=== PATIENT | male | born 1940 | race Two or more races ===

== ENCOUNTER 2017-11-22 13:52 | Inpatient (IN) | payer OTHER ==
[~2017-11-22] VITALS: Ht 172.7 cm; Wt 66.3 kg
[2017-11-22 13:55] VITALS: Ht 172.7 cm; Wt 66.3 kg
[2017-11-22] MEDS ORDERED: ONGLYZA5 M1 PO (14:12)
[2017-11-22] MEDS ORDERED: NOR10 PO (14:12)
[2017-11-22] MEDS ORDERED: GLUCOTROL5 MG PO (14:12)
[2017-11-22] MEDS ORDERED: ZOCOR5 MG (14:13)
[2017-11-22] MEDS ORDERED: BENAZEPRIL HYDR20 M1 PO (14:13)
[2017-11-22] MEDS ORDERED: ATENOLOL25 MG PO (14:13)
[2017-11-22] MEDS ORDERED: NOVOLOG MIX 70/33 ML SC ×2 (14:14)
[2017-11-22 14:30] LABS: BASOPHIL % 0.3 % (0-2); PLATELET COUNT 186 x10^3mcL (130-400); RED CELL DISTRIBUTION WIDTH 13.5 % (11.5-14.5)
[2017-11-22 14:43] LABS: ALKALINE PHOSPHATASE 59 U/L (46-116); ALT/SGPT 48 U/L (16-63); AST/SGOT 25 U/L (15-37); BILIRUBIN TOTAL 0.2 mg/dL (0.20-1.00); CALCIUM 7.8 mg/dL (8.5-10.1); CARBON DIOXIDE 23.4 mmol/L (21-32); CHLORIDE SERUM 105 mmol/L (98-107); GLUCOSE SERUM 67 mg/dL (74-106); POTASSIUM SERUM 4.4 mmol/L (3.5-5.1); SODIUM SERUM 139 mmol/L (136-145); TOTAL PROTEIN, SERUM 7.3 g/dL (6.4-8.2)
[2017-11-22 14:44] LABS: ALBUMIN 3.3 g/dL (3.4-5.0)
[2017-11-22 17:13] LABS: T3 TOTAL 0.68 ng/mL
[2017-11-22 17:14] LABS: MAGNESIUM 2.7 mg/dL (1.8-2.4); PHOSPHOROUS 4.5 mg/dL (2.5-4.9)
[2017-11-22 17:16] LABS: CHOLESTEROL/HDL RATIO 2.7
[2017-11-22 17:18] LABS: FREE T4 0.8 ng/dL (0.76-1.46); FREE THYROXINE INDEX 1.8 ug/dL (1.4-4.5); T4(THYROXINE) 5.5 ug/dL (4.7-13.3)
[2017-11-22 18:00] VITALS: BP 155/64
[2017-11-22 19:15] LABS: UA SPECIFIC GRAVITY <=1.005 (1.005-1.035); microscopic required? YES; urine erythrocyte 1+ (NEGATIVE)
[2017-11-22 19:24] LABS: AMPHETAMINE QUAL UR NONE DETECTED (NEG <=1000)
[2017-11-22 20:10] VITALS: BP 145/54
[2017-11-23 05:50] VITALS: BP 113/45
[2017-11-23 08:06] LABS: BASOPHIL % 0.3 % (0-2); PLATELET COUNT 189 x10^3mcL (130-400); RED CELL DISTRIBUTION WIDTH 13.6 % (11.5-14.5)
[2017-11-23 08:26] LABS: CALCIUM 8.8 mg/dL (8.5-10.1); CARBON DIOXIDE 22.6 mmol/L (21-32); CHLORIDE SERUM 108 mmol/L (98-107); GLUCOSE SERUM 121 mg/dL (74-106); POTASSIUM SERUM 4.7 mmol/L (3.5-5.1); SODIUM SERUM 141 mmol/L (136-145)
[2017-11-23 08:30] VITALS: BP 123/81; BP 135/61
[2017-11-23 08:37] LABS: MAGNESIUM 2.7 mg/dL (1.8-2.4); PHOSPHOROUS 4.8 mg/dL (2.5-4.9)
[2017-11-23 13:07] VITALS: BP 128/54
[2017-11-23 16:55] VITALS: BP 110/53
[2017-11-23 21:04] VITALS: BP 101/46
[2017-11-24 05:18] VITALS: BP 118/53
[2017-11-24 07:53] LABS: BASOPHIL % 0.4 % (0-2); PLATELET COUNT 174 x10^3mcL (130-400); RED CELL DISTRIBUTION WIDTH 13.4 % (11.5-14.5)
[2017-11-24 08:15] LABS: CALCIUM 8.4 mg/dL (8.5-10.1); CARBON DIOXIDE 22.9 mmol/L (21-32); CHLORIDE SERUM 109 mmol/L (98-107); GLUCOSE SERUM 180 mg/dL (74-106); MAGNESIUM 2.4 mg/dL (1.8-2.4); PHOSPHOROUS 3.4 mg/dL (2.5-4.9); POTASSIUM SERUM 5.1 mmol/L (3.5-5.1); SODIUM SERUM 141 mmol/L (136-145)
[2017-11-24 09:45] VITALS: BP 143/51
[2017-11-24 14:57] VITALS: BP 132/42
[2017-11-24 17:53] VITALS: BP 137/56
[2017-11-24 18:43] VITALS: BP 137/56
== END 2017-11-24 18:40 | disposition home or self-care (01) | DRG 91 ==
LOC: ED 13:52 → DU 16:18 → MU 17:01 → DU 17:02
PROVIDERS: Emergency Medicine; Family Medicine
DX: G92 Toxic encephalopathy (principal); N17.0 Acute kidney failure with tubular necrosis; E44.1 Mild protein-calorie malnutrition; E11.649 Type 2 diabetes mellitus with hypoglycemia without coma; T38.3X5A Adverse effect of insulin and oral hypoglycemic [antidiabetic] drugs, initial encounter; E83.41 Hypermagnesemia; R31.9 Hematuria, unspecified; E11.65 Type 2 diabetes mellitus with hyperglycemia; I10 Essential (primary) hypertension; E78.5 Hyperlipidemia, unspecified; Z68.24 Body mass index [BMI] 24.0-24.9, adult; Z86.73 Personal history of transient ischemic attack (TIA), and cerebral infarction without residual deficits; Z79.4 Long term (current) use of insulin; Y92.009 Unspecified place in unspecified non-institutional (private) residence as the place of occurrence of the external cause
CPT/HCPCS: 82962; 83880; 84439; 97110-GP; A9500; B4164; J1644; J2785; J3490; J7030; J7042; Q0092

== ENCOUNTER 2019-09-03 08:29 | Emergency (ER) | payer OTHER ==
[~2019-09-03] VITALS: Ht 167.6 cm; Wt 63.5 kg
[~2019-09-03 08:29] MED LIST: ATENOLOL25 MG PO; BENAZEPRIL HYDR20 M1 PO; GLUCOTROL5 MG PO; NOR10 PO; NOVOLOG MIX 70/33 ML SC; ONGLYZA5 M1 PO; ZOCOR5 MG
[2019-09-03 08:36] VITALS: Ht 167.6 cm; Wt 63.5 kg
[2019-09-03 09:57] LABS: microscopic required? NO
[2019-09-03 10:05] LABS: BASOPHIL % 0.4 % (0-2); PLATELET COUNT 211 x10^3mcL (130-400); RED CELL DISTRIBUTION WIDTH 14.2 % (11.5-14.5)
[2019-09-03 10:15] LABS: CALCIUM 8.8 mg/dL (8.5-10.1); CHLORIDE SERUM 109 mmol/L (98-107); CREATININE SERUM 2.1 mg/dL (0.7-1.3); GLUCOSE SERUM 125 mg/dL (74-106); POTASSIUM SERUM 5.3 mmol/L (3.5-5.1); SODIUM SERUM 140 mmol/L (136-145)
[2019-09-03 10:20] LABS: UA SPECIFIC GRAVITY >1.030 (1.005-1.035)
[2019-09-03 10:20] LABS: ALBUMIN 3.5 g/dL (3.4-5.0); ALKALINE PHOSPHATASE 57 U/L (46-116); ALT/SGPT 67 U/L (16-63); AST/SGOT 26 U/L (15-37); BILIRUBIN TOTAL 0.3 mg/dL (0.20-1.00); TOTAL PROTEIN, SERUM 7.3 g/dL (6.4-8.2)
[2019-09-03 10:21] LABS: urine erythrocyte NEGATIVE (NEGATIVE)
[2019-09-03] MEDS ORDERED: ATENOLOL25 MG PO (10:35)
[2019-09-03] MEDS ORDERED: NEPHRO-VITE VITA1 EA PO (10:35)
[2019-09-03] MEDS ORDERED: SIMVASTATIN20 M1 PO (10:35)
[2019-09-03] MEDS ORDERED: NOR10 PO (10:35)
[2019-09-03] MEDS ORDERED: BENICAR HCT1 TAB PO (10:36)
[2019-09-03] MEDS ORDERED: GLIPIZIDE5 M3 PO (10:36)
[2019-09-03] MEDS ORDERED: ONGLYZA5 M1 PO (10:38)
[2019-09-03 14:11] VITALS: BP 161/60
== END 2019-09-03 14:12 | disposition home or self-care (01) ==
LOC: ED 08:29
PROVIDERS: Emergency Medicine
DX: I63.9 Cerebral infarction, unspecified (principal); I10 Essential (primary) hypertension; E11.9 Type 2 diabetes mellitus without complications
CPT/HCPCS: 36415; 82962; Q0092